=== PATIENT | female | born 1955 | race Caucasian/White ===

== ENCOUNTER 2023-10-11 07:14 | Outpatient (REF) | payer MEDICARE, SELFPAY ==
--- NOTE | ~2023-10-11 | XR_ITS ---
EXAMINATION: XR KNEE, LEFT CLINICAL INFORMATION: Pain COMPARISON: None available. TECHNIQUE: Three views of the left knee. FINDINGS: No acute fracture or dislocation. Alignment is anatomic. Mild-moderate tricompartment osteoarthritis, joint space loss, osteophytes. Small effusion.. No abnormal soft tissue calcification. XR/XR knee LT 3V IMPRESSION: Mild-moderate tricompartment osteoarthritis.
== END 2023-10-11 07:15 | disposition home or self-care (01) ==
LOC: HO.HOSX 07:14
PROVIDERS: Visit Provider Orthopaedic Surgery
DX: M17.12 Unilateral primary osteoarthritis, left knee (principal)
CPT/HCPCS: 73562; 99202

== ENCOUNTER 2023-10-11 09:48 | Outpatient (AMB) | payer MEDICARE, SELFPAY ==
--- NOTE | 2023-10-11 09:59 | MHC.OFFVIS ---
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 She describes her pain as sharp in nature. Her pain has gotten worse over the last few years in spite of continued non operative treatments. She has had cortisone injections in the past which gave her minimal relief. She has not had a viscosupplementation injection. She wishes to hold off on surgery for as long as possible. She has done physical therapy exercises which aggravated her pain. She has also tried Tylenol and anti-inflammatory medicines which gave her minimal relief. Allergies Latex, Natural Rubber Allergy (Intermediate, Verified 10/11/23 10:07) Rash Penicillins Allergy (Intermediate, Verified 10/11/23 10:07) Rash Medication List - Last Reconciled 10/11/23 by Ej Wynn MD apixaban (Eliquis) 5 mg PO BID bupropion HCl XL 150 mg PO QAM digoxin 250 mcg PO DAILY furosemide 40 mg PO DAILY gabapentin 300 mg PO DAILY lorazepam 0.5 mg PO DAILY metoprolol succinate ER 50 mg PO DAILY omeprazole 20 mg PO DAILY rosuvastatin 20 mg PO BEDTIME sertraline 25 mg PO DAILY Physical Exam Const Other: Well-nourished well-developed very friendly female awake alert and oriented x3 in no acute distress Extrem Other: Bilateral lower extremity examination shows good capillary refill, no skin lesions noted, normal sensation light touch Left knee examination shows a minimal effusion, palpable crepitus with range of motion, pain with range of motion, range of motion from -3 degrees to 115 degrees, no instability Results Reviewed Results Reviewed: X-rays of the patient's left knee show moderate joint space narrowing most significant in the lateral compartment, subchondral sclerosis, no acute bony abnormalities Assessment & Plan Assessment & Plan (1) Arthritis of left knee: Code(s): M17.12 - Unilateral primary osteoarthritis, left knee Category: Medical Plan Ms. Gray presents with left knee pain due to degenerative joint disease. I had a lengthy discussion with the patient regarding the treatment options. She wishes to hold off on surgery for as long as possible. I agree with this plan. She has not gotten good relief from cortisone injections in the past. Thus, I will see whether or not the patient's insurance company will cover a viscosupplementation injection. I will see her back once the injection is available. Feel free to call me at any time should questions regarding her orthopedic management arise. I spent 20 minutes in reviewing the patient's records and imaging studies, seeing the patient and documenting in the medical record. Orders: Orders XR knee LT 3V Today M25.562 - Pain in left knee Coding Level of Care Code Est Pt Level 3 (06275) Diagnoses Arthritis of left knee M17.12
== END 2023-10-11 10:31 | disposition home or self-care (01) ==
PROVIDERS: PCP Pediatrics; Visit Provider Orthopaedic Surgery
DX: M17.12 Unilateral primary osteoarthritis, left knee (principal)
CPT/HCPCS: 99203

== ENCOUNTER 2023-10-31 08:31 | Outpatient (AMB) | payer MEDICARE, BC, SELFPAY ==
--- NOTE | 2023-10-31 08:34 | MHC.OFFVIS ---
Intake Visit Reasons: INJ- LT knee durolane INJ Intake Note: Yoanna is a 68 year old female who presents with complaints of progressively worsening left knee pain. The patient describes her pain as sharp in nature. Her pain has gotten worse over the last year in spite of continued non operative treatments. She has had cortisone injections in the past which gave her minimal relief. She has also done physical therapy which aggravated her pain. The patient takes Tylenol which gives her minimal relief. She has not able to tolerate anti-inflammatory medicines because she is on Eliquis. She wishes to hold off on surgery for as long as possible. Allergies Latex, Natural Rubber Allergy (Intermediate, Verified 10/31/23 08:34) Rash Penicillins Allergy (Intermediate, Verified 10/31/23 08:34) Rash Medication List - Last Reconciled 10/31/23 by Ej Wynn MD apixaban (Eliquis) 5 mg PO BID bupropion HCl XL 150 mg PO QAM digoxin 250 mcg PO DAILY furosemide 40 mg PO DAILY gabapentin 300 mg PO DAILY lorazepam 0.5 mg PO DAILY metoprolol succinate ER 50 mg PO DAILY omeprazole 20 mg PO DAILY rosuvastatin 20 mg PO BEDTIME sertraline 25 mg PO DAILY Physical Exam Const Other: Well-nourished well-developed very friendly female awake alert and oriented x3 in no acute distress Extrem Other: Bilateral lower extremity examination shows good capillary refill, no skin lesions noted, normal sensation light touch Left knee examination shows a minimal effusion, palpable crepitus with range of motion, pain with range of motion, range of motion from -3 degrees to 115 degrees, no instability Office Procedures Joint Injection/Drain Joint Injection/Drain Primary Site: left knee Prep: site was prepped using aseptic technique Injected: 60 mg of (Durolane viscosupplementation) and 1% plain lidocaine Procedure: The patient tolerated the procedure well Coding 68048 - Large joint Procedure code (CPT) selection complete Results Reviewed Results Reviewed: X-rays of the patient's left knee show joint space narrowing, subchondral sclerosis, no acute bony abnormalities Assessment & Plan Assessment & Plan (1) Arthritis of left knee: Code(s): M17.12 - Unilateral primary osteoarthritis, left knee Category: Medical Plan Ms. Gray presents with progressively worsening left knee pain due to degenerative joint disease. I had a lengthy discussion with the patient regarding the treatment options. She wishes to hold off on surgery for as long as possible. I agree with this plan. She has not gotten good relief from cortisone injections in the past. Thus, the risks and benefits of a Durolane viscosupplementation injection were discussed at length with the patient. The patient wished to proceed. She tolerated the injection well. She will continue with her home exercise program. She will follow up with me on an as-needed basis should her symptoms not plateau at an unacceptable level over the next few months. Feel free to call me at any time should questions regarding her orthopedic management arise. I spent 20 minutes in reviewing the patient's records and imaging studies, seeing the patient and documenting in the medical record. Orders: Orders AMB Joint Injection/Aspiration Today M17.12 - Unilateral primary osteoarthritis, left knee Coding Level of Care Code Est Pt Level 3 (02487) Diagnoses Arthritis of left knee M17.12 CPT Codes Coding - 73688 Large joint: 32611 - Large joint ([id number])
== END 2023-10-31 09:05 | disposition home or self-care (01) ==
PROVIDERS: PCP Pediatrics; Visit Provider Orthopaedic Surgery
DX: M17.12 Unilateral primary osteoarthritis, left knee (principal)
CPT/HCPCS: 20610; 99213

== ENCOUNTER → 2023-10-31 08:31 | Outpatient (BNVA) | payer MEDICARE, BC, SELFPAY | PROVIDERS: PCP Pediatrics; Visit Provider Orthopaedic Surgery | DX: M17.12 Unilateral primary osteoarthritis, left knee (principal) | CPT/HCPCS: 20610; 99212; J7318 ==

== ENCOUNTER 2023-12-11 07:43 | Outpatient (AMB) | payer MEDICARE, BC, SELFPAY ==
--- NOTE | 2023-12-11 07:51 | MHC.OFFVIS ---
Intake Visit Reasons: OV - left knee pain, Right shoulder pain Intake Note: Yoanna is a 68 year old female who presents with complaints of progressively worsening left knee pain and locking as well as progressively worsening right shoulder pain. The patient has undergone right shoulder rotator cuff repair surgery in the past. She reports mild weakness when lifting her right hand above shoulder height. She describes her left knee pain as sharp in nature. She has undergone left knee arthroscopic surgery in the past. She is not sure which knee she had surgery on. She states that she injured her left knee approximately 1 year ago. She twisted her knee and had acute onset of pain. Since that time her symptoms have gotten worse in spite of continued non operative treatments. She has failed the last 6 weeks of conservative treatment. She has had cortisone injections in the past which gave her minimal relief. She states that her left knee will lock several times per day. She has done physical therapy which aggravated her pain. She has tried Tylenol which gives her minimal relief. She is not able to take anti-inflammatory medicines because she is on Eliquis. Allergies Latex, Natural Rubber Allergy (Intermediate, Verified 12/11/23 07:56) Rash Penicillins Allergy (Intermediate, Verified 12/11/23 07:56) Rash Medication List - Last Reconciled 12/11/23 by Ej Wynn MD apixaban (Eliquis) 5 mg PO BID bupropion HCl XL 150 mg PO QAM diclofenac sodium 1% (Voltaren Arthritis Pain) 2 grams topical QID digoxin 250 mcg PO DAILY furosemide 40 mg PO DAILY gabapentin 300 mg PO DAILY lorazepam 0.5 mg PO DAILY metoprolol succinate ER 50 mg PO DAILY omeprazole 20 mg PO DAILY rosuvastatin 20 mg PO BEDTIME sertraline 25 mg PO DAILY Physical Exam Const Other: Well-nourished well-developed very friendly female awake alert and oriented x3 in no acute distress Extrem Other: Bilateral upper extremity examination shows good capillary refill, no skin lesions noted, normal sensation light touch Right shoulder examination shows full range of motion when compared to her left shoulder, 4/5 strength with supraspinatus testing, positive impingement signs, no instability Left knee examination shows a mild effusion, tenderness along her medial joint line, positive Tammy's test, no instability Office Procedures Joint Injection/Aspiration Joint Injection/Aspiration Primary Site: right shoulder Prep: site was prepped using aseptic technique Injected: 40 mg of, DepoMedrol and 1% plain lidocaine Procedure: The patient tolerated the procedure well Coding 11126 - Large joint Procedure code (CPT) selection complete Results Reviewed Results Reviewed: X-rays of the patient's right shoulder taken today show 1 suture anchor within the proximal humerus with no signs of loosening, no acute bony abnormalities X-rays of the patient's left knee taken previously show mild joint space narrowing, no acute bony abnormalities Assessment & Plan Assessment & Plan (1) Impingement of right shoulder: Code(s): M25.811 - Other specified joint disorders, right shoulder Category: Medical (2) Right shoulder pain: Code(s): M25.511 - Pain in right shoulder Category: Medical Plan Ms. Gray presents with right shoulder pain due to impingement syndrome and a small recurrent rotator cuff tear. I had a lengthy discussion with the patient regarding the treatment options. She wishes to hold off on further surgery for as long as possible. The risks and benefits of a right shoulder cortisone injection were discussed at length with the patient. The patient wished to proceed. She the injection well. She also has left knee pain and mechanical symptoms most likely due to a tear of her medial meniscus. Thus, I will send the patient for an MRI of her left knee for further evaluation. I will see her back once the MRI is completed to discuss the findings and treatment options. Feel free to call me any time should questions regarding her orthopedic management arise. I spent 21 minutes in reviewing the patient's records and imaging studies, seeing the patient and documenting in the medical record. Orders: Orders MR knee LT wo con Today S83.242A - Other tear of medial meniscus, current injury, left knee, initial encounter XR shoulder RT min 2V Today M25.511 - Pain in right shoulder AMB Joint Injection/Aspiration Today M25.811 - Other specified joint disorders, right shoulder Coding Level of Care Code Est Pt Level 3 (85582) Diagnoses Impingement of right shoulder M25.811 Right shoulder pain M25.511 CPT Codes Coding - 07525 Large joint: 79729 - Large joint ([id number])
== END 2023-12-11 08:10 | disposition home or self-care (01) ==
PROVIDERS: PCP Pediatrics; Visit Provider Orthopaedic Surgery
DX: M25.811 Other specified joint disorders, right shoulder (principal)
CPT/HCPCS: 20610; 99213

== ENCOUNTER 2023-12-11 10:08 | Outpatient (REF) | payer MEDICARE, SELFPAY ==
--- NOTE | ~2023-12-11 | XR_ITS ---
EXAMINATION: XR SHOULDER, RIGHT CLINICAL INFORMATION: Right shoulder pain COMPARISON: None available. TECHNIQUE: Two views of the right shoulder. FINDINGS: No acute fracture or dislocation. Elevation of the humeral head relative to glenoid fossa likely reflects underlying rotator cuff pathology. Degenerative changes of the humeral head with osteophytosis. Surgical anchor of the humeral head noted. XR/XR shoulder RT min 2V IMPRESSION: Elevation of the humeral head relative to glenoid fossa likely reflects underlying rotator cuff pathology. Degenerative changes of the glenohumeral joint. Electronically signed by: Linda Levy MD 01/08/2024 06:35 PM EDT
== END 2023-12-11 10:09 | disposition home or self-care (01) ==
LOC: HO.HOSX 10:08
PROVIDERS: Visit Provider Orthopaedic Surgery
DX: M25.511 Pain in right shoulder (principal); M25.811 Other specified joint disorders, right shoulder; S83.242A Other tear of medial meniscus, current injury, left knee, initial encounter
CPT/HCPCS: 20610; 73030; 99212; J1010

== ENCOUNTER 2024-01-01 08:23 | Outpatient (AMB) | payer MEDICARE, SELFPAY ==
--- NOTE | 2024-01-01 08:26 | MHC.OFFVIS ---
Vital Signs 01/01/24 08:33 Height 5 ft 5 in Weight 220 lb BMI 36.6 Intake Visit Reasons: MRI left knee review Intake Note: Ms. Gray presents with complaints of progressively worsening left knee pain and locking. The patient states that her symptoms have gotten worse over the last few years in spite of continued non operative treatments. She has failed the last 6 weeks of conservative treatment. The patient states that her left knee will ?lock? several times per day. She has tried Tylenol and anti-inflammatory medicines as well as topical diclofenac gel which gave her minimal relief. She has done physical therapy exercises which aggravated her pain. She has also had cortisone injections in the past which gave her minimal relief. She wishes to hold off on total knee replacement surgery if at all possible. Allergies Latex, Natural Rubber Allergy (Intermediate, Verified 01/01/24 08:27) Rash Penicillins Allergy (Intermediate, Verified 01/01/24 08:27) Rash Medication List - Last Reconciled 01/01/24 by Ej Wynn MD apixaban (Eliquis) 5 mg PO BID bupropion HCl XL 150 mg PO QAM diclofenac sodium 1% (Voltaren Arthritis Pain) 2 grams topical QID digoxin 250 mcg PO DAILY furosemide 40 mg PO DAILY gabapentin 300 mg PO DAILY lorazepam 0.5 mg PO DAILY metoprolol succinate ER 50 mg PO DAILY omeprazole 20 mg PO DAILY rosuvastatin 20 mg PO BEDTIME sertraline 25 mg PO DAILY Physical Exam Vital Signs: BMI result Body Mass Index 36.6 Const Other: Well-nourished well-developed very friendly female awake alert and oriented x3 in no acute distress Extrem Other: Bilateral lower extremity examination shows good capillary refill, no skin lesions noted, normal sensation light touch Left knee examination shows a minimal effusion, mild crepitus with range of motion, tenderness along her medial joint line, positive Tammy's test, no instability Results Reviewed Results Reviewed: Standing full weight-bearing x-rays of the patient's left knee show mild to moderate joint space narrowing, no acute bony abnormalities MRI of the patient's left knee shows a tear of the medial meniscus as well as mild to moderate degenerative changes Assessment & Plan Assessment & Plan (1) Tear of medial meniscus of left knee: Code(s): S83.242A - Other tear of medial meniscus, current injury, left knee, initial encounter Category: Medical Plan Ms. Gray presents with progressively worsening left knee pain and mechanical symptoms due to degenerative joint disease as well as a tear of her medial meniscus. I had a lengthy discussion with the patient regarding the treatment options. At this point the patient has failed continued non operative treatments. The risks and benefits of left knee arthroscopic surgery versus left total knee replacement surgery were discussed at length with the patient. Because of the patient's significant mechanical symptoms I do believe that she would get significant relief from the arthroscopic procedure. The patient wishes to hold off on total knee replacement surgery for as long as possible. The patient wishes to proceed with left knee arthroscopic surgery. Surgery will most likely involve left knee arthroscopic partial medial meniscectomy. The patient will be scheduled for next available date. She will follow-up as instructed. She will be given a prescription for pain medicine at the time of her surgery. Feel free to call me at any time should questions regarding her orthopedic management arise. I spent 20 minutes in reviewing the patient's records and imaging studies, seeing the patient and documenting in the medical record. Coding Level of Care Code Est Pt Level 3 (04655) Complex EM visit Add On G2211 Diagnoses Tear of medial meniscus of left knee S83.242A
[2024-01-01 08:33] VITALS: BMI 36.6
== END 2024-01-01 08:48 | disposition home or self-care (01) ==
LOC: HO.HOS 08:23
PROVIDERS: PCP Pediatrics; Visit Provider Orthopaedic Surgery
DX: S83.242A Other tear of medial meniscus, current injury, left knee, initial encounter (principal); M17.12 Unilateral primary osteoarthritis, left knee
CPT/HCPCS: 99213

== ENCOUNTER → 2024-01-01 08:23 | Outpatient (BNVA) | payer MEDICARE, SELFPAY | PROVIDERS: PCP Pediatrics; Visit Provider Orthopaedic Surgery | DX: S83.242A Other tear of medial meniscus, current injury, left knee, initial encounter (principal) | CPT/HCPCS: 99212 ==

== ENCOUNTER 2024-01-11 09:14 | Day surgery (SDC) | payer MEDICARE, SELFPAY ==
--- NOTE | 2024-01-09 14:43 | HO.ANESPROP2 ---
Documented by User: Emily eWaver NP 01/10/24 13:14 HPI - Anesthesia Eval Consult details Narrative: 68yo F for Left Knee Arthroscopy with partial medial meniscectomy Follows [facility] cardiology for afib, htn, hx GA. Last office visit 06/2023 with med changes for slow vent rate, no signs of HF. OK to hold eliquis per workload. [facility] admit 06/2023 with NSTEMI - ?NSTEMI felt to be secondary to?spasms versus stress-induced [facility] pulmo eval for DULCE 09/2023 PMFSH Active Problems Active Problems: All Active Problems Tear of medial meniscus of left knee (Acute) Impingement of right shoulder (Acute) Right shoulder pain (Acute) Arthritis of left knee (Acute) Left knee pain (Acute) Past Medical History Medical History Back pain Pre-diabetes Asthma, exercise induced A-fib Arthritis Hyperlipemia GERD (gastroesophageal reflux disease) Fatigue Depression Myocardial infarction (~06/2023) Anxiety HTN (hypertension) Surgical History Surgical History Hx of basal cell carcinoma excision Hx of colonoscopy Hx of cardiac catheterization Hx of repair of right rotator cuff Hx of repair of left rotator cuff Social History Social History Are you a primary child care sitter to a significant other at home: No Do you presently have visiting nurse or other home services: No Patient Tobacco Use Status: Former Tobacco user Tobacco use type: Cigarette Smoked in Last 30 Days: No Use of substances other than those prescribed or required for medical reasons: No Have you been hit, kicked, punched, or otherwise hurt by someone within the past year? If so, by whom?: No Are you DNR?: No Advance Directives: No Advance Directives Information Provided: Yes Advance Directives on File: No Recently lost weight without trying: No Poor oral hygiene: No Meds Allergies Allergy/AdvReac Type Severity Reaction Status Date / Time adhesive tape Allergy Intermediate Rash Verified 01/11/24 09:28 Latex, Natural Rubber Allergy Intermediate Rash Verified 01/11/24 09:28 Penicillins Allergy Intermediate Rash Verified 01/11/24 09:28 Home Medications ?Medication ?Instructions ?Recorded ?Confirmed ?Last Taken ?Type apixaban 5 mg tablet (Eliquis) 5 mg PO BID 10/11/23 01/11/24 01/07/24 History bupropion HCl 150 mg 24 hr tablet, 150 mg PO QAM 10/11/23 01/11/24 01/11/24 History extended release digoxin 250 mcg (0.25 mg) tablet 250 mcg PO BEDTIME 10/11/23 01/11/24 01/10/24 History furosemide 40 mg tablet 40 mg PO DAILY 10/11/23 01/11/24 01/10/24 History gabapentin 300 mg capsule 300 mg PO BEDTIME 10/11/23 01/11/24 01/10/24 History lorazepam 0.5 mg tablet 0.5 mg PO DAILY PRN Anxiety 10/11/23 01/09/24 Unknown History metoprolol succinate 50 mg 50 mg PO BEDTIME 10/11/23 01/09/24 Unknown History tablet,extended release 24 hr omeprazole 20 mg capsule,delayed 20 mg PO DAILY 10/11/23 01/11/24 01/11/24 History release rosuvastatin 20 mg tablet 20 mg PO BEDTIME 10/11/23 01/11/24 01/10/24 History sertraline 25 mg tablet 25 mg PO DAILY 10/11/23 01/11/24 01/11/24 History albuterol sulfate 90 mcg/actuation 2 puff inhalation QID PRN 01/10/24 01/10/24 Unknown History aerosol inhaler Shortness Of Breath Or Wheezing Exam Narrative Narrative: ECG 12-Lead ? 08:46:50 Ventricular Rate: 58 BPM QRS Duration: 106 ms Q-T Interval: 410 ms QTC Calculation(Bazett): 402 ms R [place]: -50 degrees T [place]: -70 degrees Atrial fibrillation with slow ventricular response Left axis deviation ST and T wave abnormality, consider inferolateral ischemia Abnormal ECG When compared with ECG of 29-JUN-2023 20:43, MANUAL COMPARISON REQUIRED, DATA IS UNCONFIRMED Confirmed by ROBIN DORANTES, [facility] ([id number]) on 07/06/2023 1:38:52 PM EchoEchocardiogram - Complete ? 08:20:21 Summary 1. Mild concentric left ventricular hypertrophy. Normal left ventricular size. Low-normal left ventricular systolic function. Left ventricular ejection fraction is 50 % by biplane Gilliland?s estimation. No obvious regional wall motion abnormalities, however acoustic shadowing and foreshortening limits accurate evaluation of segmental wall motion. Unable to assess diastolic function due to atrial fibrillation. 2. The right ventricle is severely dilated. Right ventricular systolic function is normal. 3. The left atrium is mildly dilated. 4. No significant valvular abnormalities. 5. The pulmonary artery systolic pressure estimation is 14 mmHg plus the CVP or right atrial pressure. 6. There is no significant pericardial effusion. 7. The ascending aorta and aortic root are normal in size. Comparison Comparison is made to the study of June 20, 2021. The left atrium appears less dilated and the right ventricle is more dilated. Signature ? Signed By: Johnny DORANTES, [facility] Cardiac cath 06/2023 Conclusions Diagnostic Summary Normal left ventricular filling pressures. LVEDP 13-15 mmHg. Normal systemic pressures. No evidence of any gradient across aortic valve by catheter pullback from LV to aorta. Low normal left ventricle systolic function by recent echo. LVEF 55% without any segmental wall motion abnormalities. Unable to perform left heart catheterization using right radial access due to a small caliber and heavily tortuous right radial artery and inability to advance 5 [place] diagnostic catheters. Patient had some right upper extremity discomfort and therefore we opted to switch to right common femoral arterial access. Right coronary artery is dominant and angiographically normal. Left main coronary artery is angiographically normal. There is mild luminal irregularities noted in mid to distal LAD. There is a long but very small caliber septal act english tutor branch originating from mid LAD. Left circumflex is medium to large in size with mild luminal irregularities. There was no significant or obstructive coronary disease explaining her symptoms. No clear angiographic abnormalities were related to borderline troponin elevation. We cannot rule out a stress-induced or coronary spasm induced mild troponin elevation in this patient. Assessment and Plan Assessment Anesthesia Assessment: Chart Reviewed Documented by User: Karishma De La Cruz MD 01/11/24 10:43 PMF Past Medical History Medical History Back pain Pre-diabetes Asthma, exercise induced A-fib Arthritis Hyperlipemia GERD (gastroesophageal reflux disease) Fatigue Depression Myocardial infarction (~06/2023) Anxiety HTN (hypertension) Family History Family history of problems with anesthesia: No Surgical History Surgical History Hx of basal cell carcinoma excision Hx of colonoscopy Hx of cardiac catheterization Hx of repair of right rotator cuff Hx of repair of left rotator cuff History of Problems with Anesthesia: No Social History Social History Are you a primary child care sitter to a significant other at home: No Do you presently have visiting nurse or other home services: No Patient Tobacco Use Status: Former Tobacco user Tobacco use type: Cigarette Smoked in Last 30 Days: No Use of substances other than those prescribed or required for medical reasons: No Have you been hit, kicked, punched, or otherwise hurt by someone within the past year? If so, by whom?: No Are you DNR?: No Advance Directives: No Advance Directives Information Provided: Yes Advance Directives on File: No Recently lost weight without trying: No Poor oral hygiene: No Meds Allergies Allergy/AdvReac Type Severity Reaction Status Date / Time adhesive tape Allergy Intermediate Rash Verified 01/11/24 09:28 Latex, Natural Rubber Allergy Intermediate Rash Verified 01/11/24 09:28 Penicillins Allergy Intermediate Rash Verified 01/11/24 09:28 Home Medications ?Medication ?Instructions ?Recorded ?Confirmed ?Last Taken ?Type apixaban 5 mg tablet (Eliquis) 5 mg PO BID 10/11/23 01/11/24 01/07/24 History bupropion HCl 150 mg 24 hr tablet, 150 mg PO QAM 10/11/23 01/11/24 01/11/24 History extended release digoxin 250 mcg (0.25 mg) tablet 250 mcg PO BEDTIME 10/11/23 01/11/24 01/10/24 History furosemide 40 mg tablet 40 mg PO DAILY 10/11/23 01/11/24 01/10/24 History gabapentin 300 mg capsule 300 mg PO BEDTIME 10/11/23 01/11/24 01/10/24 History lorazepam 0.5 mg tablet 0.5 mg PO DAILY PRN Anxiety 10/11/23 01/09/24 Unknown History metoprolol succinate 50 mg 50 mg PO BEDTIME 10/11/23 01/09/24 Unknown History tablet,extended release 24 hr omeprazole 20 mg capsule,delayed 20 mg PO DAILY 10/11/23 01/11/24 01/11/24 History release rosuvastatin 20 mg tablet 20 mg PO BEDTIME 10/11/23 01/11/24 01/10/24 History sertraline 25 mg tablet 25 mg PO DAILY 10/11/23 01/11/24 01/11/24 History albuterol sulfate 90 mcg/actuation 2 puff inhalation QID PRN 01/10/24 01/10/24 Unknown History aerosol inhaler Shortness Of Breath Or Wheezing Exam Airway Mallampati Class: III TM Dist: >3cm Neck ROM: Full Heart: rrr Lungs: cta Assessment and Plan Assessment Anesthesia Assessment: Anesthesia Plan Discussed Final Anesthetic Review Family History of Problems with Anesthesia: No History of Problems with Anesthesia: No NPO: Yes ASA Class: III Final Preanesthetic Review: No Changes in Pt Med Stat, Meds/Allgs Chart Reviewed, Consent Obtained/Reviewed and Anes Risks/Benef Reviewed Patient Risk: Intermediate Procedure Risk: Low Anesthetic Plan Anesthetic Plan: GA Disposition: Standard PACU
[2024-01-09 15:20] VITALS: BMI 36.6
[2024-01-10 09:56] VITALS: BMI 36.6
[2024-01-11] VITALS (12 sets, daily range): BP systolic 126–150; BP diastolic 74–94; PULSE 64–86; RESP 9–22; TEMP 36.2–36.6; O2SAT 94–99
[2024-01-11] MEDS: Lactated Ringers 1,000 ML 50 ML IVCONT (09:38)
[2024-01-11] MEDS: fentaNYL citrate/PF 100 MCG/2 ML VIAL 25 MCG IVPUSH ×5 (12:20→12:55)
--- NOTE | 2024-01-11 12:31 | PM.OP ---
Brief Operative Note Date of Service: 01/11/24 Pre-op diagnosis: Left knee medial meniscus tear, left knee lateral meniscus tear, left knee degenerative joint disease Post-op diagnosis: same Procedure: Left knee diagnostic arthroscopy with left knee arthroscopic partial medial and lateral meniscectomies, left knee arthroscopic chondroplasty of the lateral femoral condyle and the undersurface of the patella Implants: none Surgeon: Ej Wynn MD Anesthesia: GLMA Was an Room Service Manager used for this Procedure?: No Estimated blood loss (mL): 10 Pathology: none sent Condition: stable Disposition: PACU
--- NOTE | 2024-01-11 12:32 | P.OP_ITS ---
Operative Note Operative Note Date of Service: 01/11/24 Narrative: After the patient was identified as Yoanna Gray and her left knee was initialed by myself they were brought to the operating room where general anesthesia was induced by the anesthesiologist in routine fashion. Because of the patient's allergy to penicillin she was given 900 mg of IV clindamycin preoperatively for infection prophylaxis. The patient's left lower extremity was prepped and draped in sterile fashion. A formal time-out was completed. Marcaine was injected into the planned incision sites as well as the patient's left knee joint. A #11 scalpel blade was used to make an anterolateral portal 1 cm proximal to the joint line and 1 cm lateral to the patellar tendon. Blunt trocar technique was used to enter the suprapatellar pouch with the knee in extension. Diagnostic arthroscopy showed multiple bands of thickened plica which would be excised at the end of the procedure. There were no loose bodies or abnormalities found in either the medial or lateral gutters. The articular surface of the patella showed diffuse grades 1 and 2 degenerative changes. The trochlear groove articular surface showed diffuse grades 1 and 2 degenerative changes. The patient's knee was flexed to 45 degrees and a valgus force was placed upon it. The medial compartment was entered. An anteromedial portal was made 1 cm proximal to the joint line and 1 cm medial to the patellar tendon. Probing of the medial meniscus showed a radial tear of the posterior horn. A partial medial meniscectomy was performed using the arthroscopic shaver. Following the partial meniscectomy the remainder of the meniscus tissue was stable. There were diffuse grade 2 degenerative changes of the medial femoral condyle as well as grade 1 degenerative changes of the medial tibial plateau. The articular surfaces of the medial femoral condyle and medial tibial plateau were already smooth so no chondroplasty was indicated. The patient's knee was placed into a neutral position. There was partial tearing of the anterior cru ciate ligament measuring approximately 50% of the ligament width. The patient's knee was then placed in the figure of 4 position and the lateral compartment was entered. There was a radial tear of the posterior horn of the lateral meniscus. A partial lateral meniscectomy was performed using the arthroscopic shaver. Following the partial meniscectomy the remainder of the meniscus tissue was sta ble. There were diffuse grade 2 and 3 degenerative changes of the lateral femoral condyle and lateral tibial plateau. The lateral femoral condyle was made smooth using the arthroscopic shaver. The articular surface of the lateral tibial plateau was already smooth so no chondroplasty was indicated. The patient's knee was once again brought into extension and the suprapatellar pouch was entered. The arthroscopic shaver and the ArthroCare Wand were used to excise the thickened bands of plica. The undersurface of the patella was then made smooth using the arthroscopic shaver. The articular surface of the trochlear groove was already smooth so no chondroplasty was indicated. The knee joint was irrigated and then drained. All arthroscopic instruments were removed. The 2 portals were closed with 3-0 nylon interrupted suture. The knee joint was injected with Marcaine. Dry sterile dressing and Luis bandages were placed over the patient's knee. The patient was awoken and extubated in the operating room. The patient was transferred to the recovery room in stable condition.
== END 2024-01-11 14:32 | disposition home or self-care (01) ==
PROVIDERS: PCP Pediatrics; Visit Provider Orthopaedic Surgery
PROC: (CPT 29870; principal; 2024-01-11 11:20)
DX: S83.242A Other tear of medial meniscus, current injury, left knee, initial encounter (principal); S83.282A Other tear of lateral meniscus, current injury, left knee, initial encounter; M67.52 Plica syndrome, left knee; M17.12 Unilateral primary osteoarthritis, left knee; S83.512A Sprain of anterior cruciate ligament of left knee, initial encounter; X58.XXXA Exposure to other specified factors, initial encounter; Y93.9 Activity, unspecified; Y92.9 Unspecified place or not applicable; Y99.9 Unspecified external cause status; I10 Essential (primary) hypertension; I48.91 Unspecified atrial fibrillation; I25.2 Old myocardial infarction; E78.5 Hyperlipidemia, unspecified; J45.990 Exercise induced bronchospasm; R73.03 Prediabetes; Z85.828 Personal history of other malignant neoplasm of skin; F41.9 Anxiety disorder, unspecified; Z79.01 Long term (current) use of anticoagulants; Z79.899 Other long term (current) drug therapy; Z88.0 Allergy status to penicillin; Z91.040 Latex allergy status; L23.1 Allergic contact dermatitis due to adhesives; Z87.891 Personal history of nicotine dependence; Z98.890 Other specified postprocedural states
CPT/HCPCS: 29880; 29876; J0131; J0171; J0736; J1100; J1885; J2405; J2704; J2795; J3010

== ENCOUNTER → 2024-01-11 09:14 | Outpatient (BNV) | payer MEDICARE, SELFPAY | PROVIDERS: PCP Pediatrics; Visit Provider Orthopaedic Surgery | DX: S83.242A Other tear of medial meniscus, current injury, left knee, initial encounter (principal); S83.282A Other tear of lateral meniscus, current injury, left knee, initial encounter | CPT/HCPCS: 29880 ==

== ENCOUNTER 2024-01-23 13:34 | Outpatient (AMB) | payer MEDICARE, SELFPAY ==
--- NOTE | 2024-01-23 13:38 | MHC.OFFVIS ---
Intake Visit Reasons: PO LT knee 01/11/24 Intake Note: Yoanna is a 68 year old female who presents with complaints of mild intermittent discomfort in her left knee after undergoing left knee arthroscopic surgery on 01/11/2024. She continues with her home stretching program. She denies any fevers or chills. Allergies adhesive tape Allergy (Intermediate, Verified 01/23/24 13:42) Rash Latex, Natural Rubber Allergy (Intermediate, Verified 01/23/24 13:42) Rash Penicillins Allergy (Intermediate, Verified 01/23/24 13:42) Rash Medication List - Last Reconciled 01/23/24 by Ej Wynn MD albuterol sulfate 90 mcg/actuation 2 puffs inhalation QID PRN apixaban (Eliquis) 5 mg PO BID bupropion HCl XL 150 mg PO QAM diclofenac sodium 1% (Voltaren Arthritis Pain) 2 grams topical QID digoxin 250 mcg PO BEDTIME furosemide 40 mg PO DAILY gabapentin 300 mg PO BEDTIME lorazepam 0.5 mg PO DAILY PRN metoprolol succinate ER 50 mg PO BEDTIME omeprazole 20 mg PO DAILY oxycodone 5 mg PO Q6H PRN rosuvastatin 20 mg PO BEDTIME sertraline 25 mg PO DAILY PFSH Medical History Back pain Pre-diabetes Asthma, exercise induced A-fib Arthritis Hyperlipemia GERD (gastroesophageal reflux disease) Fatigue Depression Myocardial infarction (~06/2023) Anxiety HTN (hypertension) Surgical History Hx of basal cell carcinoma excision Hx of colonoscopy Hx of cardiac catheterization Hx of repair of right rotator cuff Hx of repair of left rotator cuff Social History Are you a primary home care and home health aides teacher to a significant other at home: No Do you presently have visiting nurse or other home services: No Patient Tobacco Use Status: Former Tobacco user Tobacco use type: Cigarette Physical Exam Extrem Other: Left knee examination shows that the surgical incisions are healing well, no erythema, minimal discomfort with range of motion Assessment & Plan Assessment & Plan (1) Left knee pain: Code(s): M25.562 - Pain in left knee Category: Medical Plan Ms. Gray is doing well after undergoing left knee arthroscopic surgery on January 10. Her sutures were removed and Steri-Strips placed over her incisions. She will gradually progress to activities as tolerated. She will contact me prior to her follow-up appointment in 6 weeks should any questions or concerns arise. Feel free to call me at any time should questions regarding her orthopedic management arise. Coding Level of Care Code Global (61565) Diagnoses Left knee pain M25.562
== END 2024-01-23 14:09 | disposition home or self-care (01) ==
PROVIDERS: PCP Pediatrics; Visit Provider Orthopaedic Surgery
DX: M25.562 Pain in left knee (principal)
CPT/HCPCS: 99024

== ENCOUNTER → 2024-01-23 13:34 | Outpatient (BNVA) | payer MEDICARE, SELFPAY | PROVIDERS: PCP Pediatrics; Visit Provider Orthopaedic Surgery | DX: Z47.89 Encounter for other orthopedic aftercare (principal); Z98.890 Other specified postprocedural states | CPT/HCPCS: 99212 ==

== ENCOUNTER 2024-03-05 09:05 | Outpatient (AMB) | payer MEDICARE, SELFPAY ==
--- NOTE | 2024-03-05 09:08 | MHC.OFFVIS ---
Intake Visit Reasons: PO LT knee 01/11/24 Intake Note: Yoanna is a 69 year old female who presents with complaints of mild to moderate intermittent discomfort in her left knee after undergoing left knee arthroscopic surgery on 01/11/2024. The patient states that her left knee will also intermittently ?lock?. She states that her symptoms are somewhat better than they were preoperatively. She denies any fevers or chills. She is not able to take anti-inflammatory medicines because she is on Eliquis. She has tried Tylenol which gives her minimal relief. Allergies adhesive tape Allergy (Intermediate, Verified 03/05/24 09:20) Rash Latex, Natural Rubber Allergy (Intermediate, Verified 03/05/24 09:20) Rash Penicillins Allergy (Intermediate, Verified 03/05/24 09:20) Rash Medication List - Last Reconciled 03/05/24 by Ej Wynn MD albuterol sulfate 90 mcg/actuation 2 puffs inhalation QID PRN apixaban (Eliquis) 5 mg PO BID bupropion HCl XL 150 mg PO QAM diclofenac sodium 1% (Voltaren Arthritis Pain) 2 grams topical QID digoxin 250 mcg PO BEDTIME furosemide 40 mg PO DAILY gabapentin 300 mg PO BEDTIME lorazepam 0.5 mg PO DAILY PRN metoprolol succinate ER 50 mg PO BEDTIME omeprazole 20 mg PO DAILY oxycodone 5 mg PO Q6H PRN rosuvastatin 20 mg PO BEDTIME sertraline 25 mg PO DAILY tramadol 50 mg PO Q12H PRN PFSH Medical History Back pain Pre-diabetes Asthma, exercise induced A-fib Arthritis Hyperlipemia GERD (gastroesophageal reflux disease) Fatigue Depression Myocardial infarction (~06/2023) Anxiety HTN (hypertension) Surgical History Hx of basal cell carcinoma excision Hx of colonoscopy Hx of cardiac catheterization Hx of repair of right rotator cuff Hx of repair of left rotator cuff Social History Are you a primary child care coordinator to a significant other at home: No Do you presently have visiting nurse or other home services: No Patient Tobacco Use Status: Former Tobacco user Tobacco use type: Cigarette Physical Exam Const Other: Well-nourished well-developed very friendly female awake alert and oriented x3 in no acute distress Extrem Other: Left knee examination shows that the surgical incisions are well healed, no erythema, mild crepitus with range of motion, no instability Assessment & Plan Assessment & Plan (1) Left knee pain: Code(s): M25.562 - Pain in left knee Category: Medical Plan Mrs. Gray continues to do fairly well after undergoing left knee arthroscopic surgery on 01/11/2024. She will gradually progress to activities as tolerated. I discussed with the patient the fact that her discomfort should continue to improve over the next few months. I did give her a prescription for tramadol to help with her pain in the meantime. She will contact me prior to her follow-up appointment in 3 months should any questions or concerns arise. Feel free to call me at any time should questions regarding her orthopedic arise. Medications: New tramadol 50 mg PO Q12H PRN 40 tabs 0RF pain Coding Level of Care Code Global (07771) Diagnoses Left knee pain M25.562
== END 2024-03-05 09:30 | disposition home or self-care (01) ==
LOC: HO.HOS 09:05
PROVIDERS: PCP Pediatrics; Visit Provider Orthopaedic Surgery
DX: M25.562 Pain in left knee (principal)
CPT/HCPCS: 99024

== ENCOUNTER → 2024-03-05 09:05 | Outpatient (BNVA) | payer MEDICARE, SELFPAY | PROVIDERS: PCP Pediatrics; Visit Provider Orthopaedic Surgery | DX: M25.562 Pain in left knee (principal); Z79.01 Long term (current) use of anticoagulants; Z47.89 Encounter for other orthopedic aftercare; Z98.890 Other specified postprocedural states | CPT/HCPCS: 99212 ==